=== PATIENT | male | born 1995 | race Caucasian/White ===

== ENCOUNTER 2019-06-28 01:24 | Emergency (ER) | payer BC ==
[~2019-06-28] VITALS: Ht 175.3 cm; Wt 88.0 kg
[2019-06-28 02:37] VITALS: BP 129/54
== END 2019-06-28 04:10 | disposition left against medical advice (07) ==
LOC: ER 01:24
DX: R10.9 Unspecified abdominal pain (principal); Z53.21 Procedure and treatment not carried out due to patient leaving prior to being seen by health care provider